=== PATIENT | female | born 1990 | race Caucasian/White ===

== ENCOUNTER 2022-02-25 12:23 | Emergency (ER) | payer SELFPAY ==
[2022-02-25] MEDS ORDERED: Ketorolac 30 MG/ML SDV IVPUSH ONE (12:26)
[2022-02-25] MEDS ORDERED: Sodium Chloride 0.9% 1,000 ML IV ONE (12:26)
[2022-02-25 13:18] LABS: BLOOD UREA NITROGEN,BUN 6 mg/dL (7.0-18.0); CARBON DIOXIDE,CO2 25.9 mmol/L (21.0-32.0); CHLORIDE,CL 107 mmol/L (98-107); GLUCOSE RANDOM 91 mg/dL (74-106); POTASSIUM,K 4.2 mmol/L (3.5-5.1); SODIUM,NA 140 mmol/L (136-145)
== END 2022-02-25 14:00 | disposition home or self-care (01) ==
LOC: MW.ED 12:23
DX: F41.0 Panic disorder [episodic paroxysmal anxiety] (principal)
CPT/HCPCS: 36415; 80053; 85025; 96374; 99284; J1885; J7030; 99282

== ENCOUNTER 2022-08-28 06:00 | Day surgery (SDC) | payer BC ==
[2022-08-28] MEDS ORDERED: Scopolamine 1.5 MG Transdermal Patch ONE (07:18)
[2022-08-28] MEDS ORDERED: Propofol 200 MG/20 ML SDV ONE (07:23)
[2022-08-28] MEDS ORDERED: fentaNYL 250 MCG/5 ML SDV ONE ×2 (07:24→08:29)
[2022-08-28] MEDS ORDERED: Bupivacaine 0.25% 30 ML SDV ONE (07:27)
[2022-08-28] MEDS ORDERED: Famotidine 20 MG/2 ML SDV ONE (07:28)
[2022-08-28] MEDS ORDERED: Ropivacaine 0.5% 5 MG/ML 30 ML SDV ONE (07:28)
[2022-08-28] MEDS ORDERED: Lactated Ringers 1,000 ML IV ONE (08:00)
[2022-08-28] MEDS ORDERED: Ketamine 500 mg/10 ML MDV ONE (08:33)
[2022-08-28] MEDS ORDERED: fentaNYL 100 MCG/2 ML SDV ONE ×3 (08:50→09:15)
[2022-08-28] MEDS ORDERED: propofoL 100 ML ONE (09:06)
[2022-08-28] MEDS ORDERED: Ketorolac 30 MG/ML SDV ONE (10:54)
[2022-08-28] MEDS ORDERED: Rocuronium Bromide 50 MG/5 ML Syringe ONE (10:54)
[2022-08-28] MEDS ORDERED: Ondansetron 4 MG/2 ML SDV ONE (10:54)
[2022-08-28] MEDS ORDERED: Dexamethasone 4 MG/ML 5 ML MDV ONE (10:54)
[2022-08-28] MEDS ORDERED: Sugammadex Sodium 200 MG/2 ML VIAL ONE (10:54)
== END 2022-08-28 10:55 ==
LOC: MW.SDS 06:00
PROVIDERS: ATTEND Obstetrics & Gynecology
DX: N80.9 Endometriosis, unspecified (principal); K66.0 Peritoneal adhesions (postprocedural) (postinfection); G89.29 Other chronic pain; F32.A Depression, unspecified; F41.9 Anxiety disorder, unspecified; G43.909 Migraine, unspecified, not intractable, without status migrainosus; N94.6 Dysmenorrhea, unspecified; Z87.891 Personal history of nicotine dependence; Z79.899 Other long term (current) drug therapy; Z88.5 Allergy status to narcotic agent; Z88.8 Allergy status to other drugs, medicaments and biological substances
CPT/HCPCS: 58662; A9270; J1100; J1885; J2405; J2704; J2795; J3010; J3490; J7030; J7120; 00840

== ENCOUNTER 2025-09-17 11:04 | Day surgery (SDC) | payer BC ==
[~2025-09-17 11:04] MED LIST: Sodium Chloride 0.9% 10 ML Syringe FLUSH PRN; Sodium Chloride 0.9% 2.5 ML Syringe FLUSH PRN
[2025-09-17] MEDS: Lactated Ringers 1,000 ML IV SCH (11:35)
[2025-09-17] MEDS ORDERED: Ondansetron 4 MG/2 ML SDV ONE (11:56)
[2025-09-17] MEDS ORDERED: Propofol 200 MG/20 ML SDV ONE (11:57)
== END 2025-09-17 13:20 | disposition home or self-care (01) ==
LOC: MW.SDS 11:04
PROVIDERS: ATTEND Surgery
DX: K29.70 Gastritis, unspecified, without bleeding (principal); K21.9 Gastro-esophageal reflux disease without esophagitis; F17.200 Nicotine dependence, unspecified, uncomplicated; Z88.8 Allergy status to other drugs, medicaments and biological substances; Z88.5 Allergy status to narcotic agent; Z79.899 Other long term (current) drug therapy
CPT/HCPCS: 43239; 81025; J2003; J2405; J2704; J7120; 00731